=== PATIENT | female | born 1955 | race Caucasian/White ===

== ENCOUNTER → 2021-01-05 | Outpatient (CLI) | payer BC ==
--- NOTE | 2021-01-05 11:43 | Diagnostic Imaging Report ---
CT Lung Screening INDICATION:Current smoker with 35 pack year history for baseline low-dose CT screening TECHNIQUE: Noncontrast, low-dose CT imaging performed according to the lung cancer screening protocol. Auto Exposure Controls were utilize during the CT exam to meet ALARA standards for radiation dose reduction. COMPARISON:Baseline FINDINGS:There is no suspicious lung mass or findings of lung cancer. There is some subpleural scarring most notably in the right upper lobe. There is symmetrical air trapping. There is no tracheobronchial megaly. No blebs bullous disease or air cysts. There is no thoracic lymphadenopathy. There is no pleural or pericardial effusion. There is thoracic aortic atherosclerotic vascular calcifications without aneurysm. No acute soft tissue or osseous chest wall pathology. The visualized upper abdomen showed no acute appearing pathology. IMPRESSION: 1. No findings of lung cancer. Continued low-dose CT screening follow-up in one year's time recommended. LUNG-RADS CATEGORY:Category 1 MODIFIER:None OTHER SIGNIFICANT FINDINGS:Air trapping and subpleural scarring right upper lobe, nonaneurysmal atherosclerosis and coronary atherosclerotic vascular calcifications. Dictated by: Dictated on workstation # [id number]
== END ==
LOC: RAD 10:45
PROVIDERS: ATTEND Internal Medicine Hematology & Oncology
DX: Z12.2 Encounter for screening for malignant neoplasm of respiratory organs (principal); F17.210 Nicotine dependence, cigarettes, uncomplicated
CPT/HCPCS: 71271

== ENCOUNTER → 2021-08-10 | Outpatient (CLI) | payer BC ==
[~2021-08-10] MED LIST: GADOBUTROL 15 MMOL/15 ML (GADAVIST) VIAL IV ONE
--- NOTE | 2021-08-10 18:08 | Diagnostic Imaging Report ---
TECHNIQUE: Utilizing 1.5 Karolina magnet, patient was placed in a prone position with 8-channel dual breast coil utilized. Axial STIR precontrasted image and axial T1 fat-sat postcontrast high-resolution images obtained. Axial T2-weighted images precontrast, bilaterally, as well. Sagittal vibrant temporal images were obtained pre and post contrast with bolus technique utilized of gadolinium. Images are postcontrast immediately and subsequently for 7 minutes. Pre and post contrasted images are then evaluated with I.Systems for evaluation of possible angiogenesis. Sagittal postcontrast imaging also reviewed. INDICATION: Personal history of right breast cancer, right breast pain and discoloration. COMPARISON: 11/03/2019, 11/12/2019. FINDINGS: The bilateral breasts demonstrate mild background glandularity. The bilateral breasts demonstrate mild background enhancement. Postsurgical changes of a lumpectomy are identified within the right breast with associated fat necrosis at the lumpectomy site within the anterior to middle depth of the right breast central to nipple. No suspicious enhancement at this location. Skin thickening of the right breast is noted with trabecular thickening, felt to relate to postradiation changes. No definite enhancement of the skin, itself. No suspicious enhancing mass or non-mass enhancement within the right breast. A couple of tiny foci of enhancement are seen within the left breast, favored to relate to tiny intramammary lymph nodes given T2 hyperintensity with suggestion of central T1 hyperintensity. No suspicious enhancing mass or non-mass enhancement within the left breast. No significant axillary or internal mammary adenopathy. Besides postsurgical changes, visualized portions of the chest wall are unremarkable. IMPRESSION: No evidence of malignancy. Postsurgical and post radiation changes involving the right breast with associated fat necrosis without suspicious enhancing mass or suspicious enhancement of the skin. BI-RADS Category 2: Benign findings. Follow-up: Most recent mammograms for review are from October 2019. Therefore, patient is due for annual mammography at this time, if this has not previously been performed at another facility. Dictated by: Dictated on workstation # [id number]
== END ==
LOC: RAD 12:00
PROVIDERS: ATTEND Internal Medicine Hematology & Oncology
DX: N64.1 Fat necrosis of breast (principal); N64.4 Mastodynia; R23.8 Other skin changes; Z98.890 Other specified postprocedural states; Z85.3 Personal history of malignant neoplasm of breast
CPT/HCPCS: 77049